=== PATIENT | female | born 1960 | race African-American/Black ===

== ENCOUNTER 2023-05-04 13:40 | Emergency (ER) | payer MEDICARE, MEDICAID ==
[~2023-05-04] VITALS: Ht 149.9 cm; Wt 68.2 kg
[~2023-05-04 13:40] MED LIST: ALBU17AE16 IH; AMLO-257 PO; FLUT1DIS6 IH; HYDR-3421 GT; SIMV-260 PO
[2023-05-04] MEDS ORDERED: HYDR-4527 PO (13:45)
[2023-05-04] MEDS ORDERED: TETRACAINE HCL/PF 0.5% 4 ML OPHTHALMIC SOLUTION OS ONE (14:45)
[2023-05-04] MEDS ORDERED: FLUORESCEIN SODIUM 1 MG STRIP OD ONE (14:45)
[2023-05-04] MEDS ORDERED: HYDR-3831 PO (15:15)
[2023-05-04] MEDS ORDERED: VALA500T42 PO (15:15)
[2023-05-04 15:23] VITALS: BP 121/80
== END 2023-05-04 15:53 | disposition home or self-care (01) ==
LOC: EMS 13:46
DX: B02.9 Zoster without complications (principal); J45.909 Unspecified asthma, uncomplicated; I10 Essential (primary) hypertension; Z90.710 Acquired absence of both cervix and uterus; Z98.890 Other specified postprocedural states; Z91.040 Latex allergy status; Z88.6 Allergy status to analgesic agent
CPT/HCPCS: 99283

== ENCOUNTER 2023-11-04 08:23 | Emergency (ER) | payer MEDICARE, MEDICAID ==
[~2023-11-04] VITALS: Ht 149.9 cm; Wt 59.1 kg
[~2023-11-04 08:23] MED LIST changes: -HYDR-3421 GT; +HYDR-3831 PO; +HYDR-4527 PO; +VALA500T42 PO
[2023-11-04 08:29] VITALS: BP 153/94; PULSE 97; RESP 16; TEMP 97.9
[2023-11-04] MEDS ORDERED: CLOP75TA32 PO (08:34)
[2023-11-04] MEDS ORDERED: [UNRECOGNIZED DRUG - CODE] (08:34)
[2023-11-04] MEDS ORDERED: INSLAN SQ ×2 (08:34→10:51)
[2023-11-04] MEDS ORDERED: LISI10TA24 PO (08:34)
[2023-11-04] MEDS ORDERED: METF-1211 PO (08:34)
[2023-11-04] MEDS ORDERED: EMPA10TA3 PO (08:34)
[2023-11-04] MEDS ORDERED: ATOR20TA65 PO (08:34)
[2023-11-04 10:21] LABS: GLUCOMETER DEV NAME(LOC) ERT.5; GLUCOSE,POINT OF CARE 125 MG/DL (70-110)
== END 2023-11-04 11:04 | disposition home or self-care (01) ==
LOC: EMS 08:23
DX: E11.9 Type 2 diabetes mellitus without complications (principal); J45.909 Unspecified asthma, uncomplicated; I10 Essential (primary) hypertension; Z76.0 Encounter for issue of repeat prescription; Z90.710 Acquired absence of both cervix and uterus; Z98.890 Other specified postprocedural states; Z88.6 Allergy status to analgesic agent; Z91.040 Latex allergy status
CPT/HCPCS: 82962; 99282